=== PATIENT | male | born 1965 | race Caucasian/White ===

== ENCOUNTER 2023-11-18 12:44 | Outpatient (CLI) | payer MEDICAID, OTHER | END 2023-11-18 23:59 | disposition left against medical advice (07) | LOC: EMS 12:44 | DX: R07.9 Chest pain, unspecified (principal); R06.02 Shortness of breath; R61 Generalized hyperhidrosis ==

== ENCOUNTER 2024-06-03 10:02 | Outpatient (CLI) | payer MEDICAID ==
[2024-06-03 12:28] LABS: ESTIMATED AVERAGE GLUCOSE 120 mg/dL (70-100); HEMOGLOBIN A1c% 5.8 % (4.27-6.07)
[2024-06-03 12:47] LABS: BASOPHILS # (AUTO) 0.1 10^3/uL (0.0-0.1); BASOPHILS % (AUTO) 0.8 %; EOSINOPHILS % (AUTO) 0.6 %; HCT - HEMATOCRIT 43.2 % (42.0-52.0); HGB - HEMOGLOBIN 14.2 g/dL (14.0-18.0); LYMPHOCYTES # (AUTO) 1.7 10^3/uL (1.5-3.5); LYMPHOCYTES % (AUTO) 26.6 %; MEAN CORPUSCULAR HEMOGLOBIN 29.5 pg (27.0-31.0); MEAN CORPUSCULAR HGB CONC 32.9 g/dL (32.0-36.0); MEAN CORPUSCULAR VOLUME 89.8 fL (80.0-94.0); MEAN PLATELET VOLUME 10.6 fL (7.4-11.4); MONOCYTES # (AUTO) 0.5 10^3/uL (0.0-1.0); MONOCYTES % (AUTO) 8.1 %; NEUTROPHILS % (AUTO) 63.3 %; PLT - PLATELET COUNT 241 10^3/uL (130-450); RED BLOOD COUNT 4.81 10^6/uL (4.70-6.10); RED CELL DISTRIBUTION WIDTH 12.7 % (12.0-15.0); WHITE BLOOD COUNT 6.3 x10^3/uL (4.8-10.8)
[2024-06-03 13:20] LABS: ALBUMIN 4.4 g/dL (3.2-5.5); ALBUMIN/GLOBULIN RATIO 1.8 (1.0-2.2); ALKALINE PHOSPHATASE 49 IU/L (42-121); ALT ALANINE AMINOTRANSFERASE 23 IU/L (10-60); AST ASPARTATE AMINOTRANSFERASE 19 IU/L (10-42); BILIRUBIN,TOTAL 0.4 mg/dL (0.2-1.0); BUN - BLOOD UREA NITROGEN 20 mg/dL (6-20); CALCIUM 9.3 mg/dL (8.5-10.3); CARBON DIOXIDE - CO2 31 mmol/L (21-32); CHLORIDE 100 mmol/L (101-111); CHOL/HDL RATIO 3.1 (<5.0); CHOLESTEROL 218 mg/dL; CREATININE 0.9 mg/dL (0.6-1.3); GFR - MDRD 86 (>89); GLUCOSE 112 mg/dL (74-104); HDL CHOLESTEROL 71 mg/dL; LDL CHOLESTEROL,CALCULATED 133 mg/dL; LDL/HDL RATIO 1.9 (<3.6); POTASSIUM 3.8 mmol/L (3.5-4.5); SODIUM 136 mmol/L (135-145); THYROID STIMULATING HORMONE 3.68 uIU/mL (0.34-5.60); TOTAL PROTEIN 6.8 g/dL (6.4-8.9); TRIGLYCERIDES 72 mg/dL; VLDL CHOLESTEROL 14 mg/dL
== END 2024-06-03 10:03 | disposition home or self-care (01) ==
LOC: LAB.N 10:02
DX: R07.89 Other chest pain (principal); R06.02 Shortness of breath; Z12.5 Encounter for screening for malignant neoplasm of prostate
CPT/HCPCS: 36415; 80053; 80061; 83036; 83721; 83880; 84153; 84443; 85025

== ENCOUNTER 2024-06-23 10:41 | Outpatient (CLI) | payer MEDICAID | END 2024-06-23 10:42 | disposition home or self-care (01) | LOC: DI 10:41 | DX: R07.89 Other chest pain (principal); R94.31 Abnormal electrocardiogram [ECG] [EKG]; R06.02 Shortness of breath; R00.1 Bradycardia, unspecified; I51.7 Cardiomegaly | CPT/HCPCS: 93307 ==

== ENCOUNTER 2024-06-23 11:40 | Outpatient (CLI) | payer MEDICAID ==
--- NOTE | 2024-06-23 13:27 | XRAY Report ---
PROCEDURE: Chest 2V INDICATIONS: SOB, CHEST DISCOMFORT TECHNIQUE: 2 views of the chest were acquired. COMPARISON: None. FINDINGS: Surgical changes and devices: None. Lungs and pleura: No pleural effusions or pneumothorax. Lungs are clear. Mediastinum: Mediastinal contours appear normal. Heart size is normal. Bones and chest wall: No suspicious bony lesions. Overlying soft tissues appear unremarkable. IMPRESSION: No acute cardiopulmonary process. Reviewed by: Yvonne Smith MD on 06/23/2024 1:25 PM PDT Approved by: Yvonne Smith MD on 06/23/2024 1:25 PM PDT Station ID: [id number]
== END 2024-06-23 11:41 | disposition home or self-care (01) ==
LOC: DI 11:40
DX: R06.02 Shortness of breath (principal); R07.89 Other chest pain